=== PATIENT | female | born 1970 | race Caucasian/White ===

== ENCOUNTER 2023-10-31 15:04 | Emergency (ER) | payer MEDICAID ==
[~2023-10-31] VITALS: Ht 160 cm; Wt 60.1 kg
[2023-10-31 15:13] VITALS: TEMP 98.4
[2023-10-31] MEDS: CefTRIAXone/D5W-Rocephin 1gm 50 ML IV ONE (17:44)
[2023-10-31 18:37] LABS: BASOPHILS # (AUTO) 0.1 X10'3 (0-0.2); BASOPHILS % (AUTO) 0.7 % (0-1); EOSINOPHILS # (AUTO) 0.2 X10'3 (0-0.9); EOSINOPHILS % (AUTO) 1.7 % (0-6); HEMATOCRIT 37.6 % (35.0-45.0); HEMOGLOBIN 11.7 g/dl (12.0-16.0); LYMPHOCYTES # (AUTO) 2.1 X10'3 (1.1-4.8); LYMPHOCYTES % (AUTO) 20.1 % (21-51); MEAN CORPUSCULAR HEMOGLOBIN 22.1 PG (27.0-31.0); MEAN CORPUSCULAR VOLUME 71.1 FL (78-98); MEAN PLATELET VOLUME 7.8 FL (7.4-10.4); MONOCYTES # (AUTO) 0.7 X10'3 (0-0.9); MONOCYTES % (AUTO) 7.2 % (2-12); NEUTROPHILS # (AUTO) 7.2 X10'3 (1.8-7.7); NEUTROPHILS % (AUTO) 70.3 % (42-75); PLATELET COUNT 318 X10'3 (140-440); RED BLOOD COUNT 5.29 X10'6 (4.20-5.60); RED CELL DISTRIBUTION WIDTH 15.8 % (11.5-14.5); WHITE BLOOD COUNT 10.2 X10'3 (4.5-11.0)
[2023-10-31 18:43] LABS: APTT 24 SECONDS (22-32); INR 0.9 INR; PROTHROMBIN TIME 10.1 SECONDS (9.0-12.0)
[2023-10-31 18:57] LABS: HCG SERUM QL NEGATIVE
[2023-10-31 19:07] LABS: ALANINE AMINOTRANSFERASE 265 U/L (12-78); ALBUMIN 4.2 G/DL (3.4-5.0); ALBUMIN/GLOBULIN RATIO 0.9 (1.1-1.5); ALKALINE PHOSPHATASE 155 IU/L (46-116); ANION GAP 8 (8-16); ASPARTATE AMINO TRANSFERASE 83 U/L (10-37); BILIRUBIN,TOTAL 0.5 MG/DL (0.1-1.0); BLOOD UREA NITROGEN 13 MG/DL (7-18); BUN/CREATININE RATIO 22.4 (10.0-20.0); C-REACTIVE PROTEIN 0.73 MG/DL (0.0-0.5); CALCIUM 9.4 MG/DL (8.5-10.1); CHLORIDE 98 MMOL/L (99-107); CREATININE 0.58 MG/DL (0.40-0.90); GLUCOSE 99 MG/DL (70-104); POTASSIUM 4.3 MMOL/L (3.5-5.1); SODIUM 134 MMOL/L (135-145); TOTAL CARBON DIOXIDE 27.8 MMOL/L (24-32); TOTAL PROTEIN 8.8 G/DL (6.4-8.2); eCRCL 95 ML/MIN; eGFR > 90 ML/MIN
[2023-10-31] MEDS ORDERED: CLIN300C54 PO (19:26)
[2023-10-31] MEDS: clindamycin 300mg/D5W 50mL 50 ML IV STA (19:59)
[2023-10-31 20:13] VITALS: BP 109/61; PULSE 68; RESP 16; O2SAT 100
== END 2023-10-31 20:58 | disposition home or self-care (01) ==
LOC: ER 15:06
DX: L02.511 Cutaneous abscess of right hand (principal); E78.00 Pure hypercholesterolemia, unspecified; E11.9 Type 2 diabetes mellitus without complications
CPT/HCPCS: 36415; 73140; 73200; 80053; 83605; 84145; 84703; 85025; 85610; 85651; 85730; 86140; 87040; 96365; 96367; 99285; J0696; J3490

== ENCOUNTER → 2023-11-12 | Outpatient (CLI) | payer MEDICAID | END | disposition home or self-care (01) | LOC: RAD 14:03 | PROVIDERS: ATTEND Nurse Practitioner Family | DX: R79.89 Other specified abnormal findings of blood chemistry (principal) | CPT/HCPCS: 76700 ==

== ENCOUNTER 2025-04-13 13:24 | Outpatient (CLI) | payer MEDICAID ==
--- NOTE | 2025-04-13 14:42 | RADIOLOGY REPORT ---
CLINICAL INFORMATION: PAIN IN RIGHT SHOULDER. TECHNIQUE: Multisequence multiplanar MRI images of the right shoulder were obtained without contrast. COMPARISON: CT CT UPPER EXTREMITIES on DOS: 10/31/23, DI FINGER(S) on DOS: 10/31/23 FINDINGS: Acromioclavicular joint: There is [id number] acromioclavicular hypertrophy and zjkh-vt-dphwegxi edema. There is Type 2 acromion. Moderate fluid in the subacromial / subdeltoid bursa. Rotator cuff tendons: Full-thickness complete tear of the supraspinatus tendon with retraction of torn tendon fibers to the level of the medial aspect of the humeral head up to 3.2 cm proximal to the insertion. [id number] tendinosis of the distal infraspinatus tendon with thin interstitial tears near its insertion. Small thin interstitial tear involving the cephalad fibers of the distal subscapularis tendon just proximal to its insertion. Mild tendinosis of the subscapularis tendon also noted. Teres minor tendon is intact. Biceps tendon: No significant tendinosis. No evidence of attrition or tear. Labrum: No labral tear identified. Bones: No fracture or focal marrow contusion. Mild cystic change at the greater tuberosity of the humerus. Muscles: Normal muscle bulk. No atrophy. Other: No other significant findings. IMPRESSION: 1. Full-thickness complete tear of the supraspinatus tendon from its insertion. 2. Partial-thickness interstitial tears in the distal infraspinatus and subscapularis tendons. 3. Msmq-fh-ryfaareg acromioclavicular hypertrophy. 4. Additional findings as described above.
== END 2025-04-13 23:59 | disposition home or self-care (01) ==
LOC: MRI02 13:24
PROVIDERS: ATTEND Specialist
DX: M75.121 Complete rotator cuff tear or rupture of right shoulder, not specified as traumatic (principal); M25.511 Pain in right shoulder; M75.51 Bursitis of right shoulder; M89.311 Hypertrophy of bone, right shoulder
CPT/HCPCS: 73221